=== PATIENT | female | born 1965 | race Caucasian/White ===

== ENCOUNTER 2017-04-12 12:00 | Emergency (ER) | payer MEDICAID ==
[~2017-04-12] VITALS: Ht 167.6 cm; Wt 79.1 kg
[~2017-04-12 12:00] MED LIST: DIVA250T4 PO
[2017-04-12 12:19] VITALS: BP 133/89
== END 2017-04-12 13:30 | disposition home or self-care (01) ==
LOC: ED 13:24
DX: J20.9 Acute bronchitis, unspecified (principal); Z90.49 Acquired absence of other specified parts of digestive tract; Z90.710 Acquired absence of both cervix and uterus
CPT/HCPCS: 71046; 99284

== ENCOUNTER 2017-04-14 12:31 | Inpatient (IN) | payer MEDICAID ==
[~2017-04-14] VITALS: Ht 167.6 cm; Wt 76.9 kg
[2017-04-14] MEDS ORDERED: PRED10TA PO (12:53)
[2017-04-14] MEDS ORDERED: ALBU6.7H INH (12:53)
[2017-04-14] MEDS ORDERED: CEFD300C37 PO (12:53)
[2017-04-14] MEDS ORDERED: ASPIRIN 81 MG TABLET CHEW PO ONE (13:00)
[2017-04-14] MEDS ORDERED: SODIUM CHLORIDE FLUSH 10ML SYR IVF ONE (13:00)
[2017-04-14] MEDS ORDERED: ASPIRIN 81 MG TABLET CHEW ONE (13:05)
[2017-04-14 13:06] LABS: BASOPHILS % (AUTO) 0 % (0-1); EOSINOPHILS # (AUTO) 0.01 x10^3/uL (0-0.4); EOSINOPHILS % (AUTO) 0 % (1-7); LYMPHOCYTES # (AUTO) 1.57 x10^3/uL (1-3.4); LYMPHOCYTES % (AUTO) 11 % (22-44); MD NO; MEAN CORPUSCULAR HGB CONC 33.7 g/dL (32.4-35.8); MEAN CORPUSCULAR VOLUME 86.1 fL (80-100); MEAN PLATELET VOLUME 7.5 fL (7.4-10.4); MONOCYTES # (AUTO) 0.63 x10^3/uL (0.2-0.8); MONOCYTES % (AUTO) 4 % (2-9); NEUTROPHILS # (AUTO) 12.39 x10^3/uL (1.8-6.8); NEUTROPHILS % (AUTO) 85 % (42-75); PLATELET COUNT 383 x10^3/uL (130-400); RED BLOOD COUNT 4.62 x10^6/uL (3.82-5.3); RED CELL DISTRIBUTION WIDTH 13.4 % (9.6-15.2)
[2017-04-14 13:19] LABS: ALBUMIN 3.6 g/dL (3.4-5.0); ANION GAP 9 mmol/L (5-15); CALCIUM 8.4 mg/dL (8.5-10.1); CHLORIDE 107 mmol/L (98-107)
[2017-04-14 13:26] LABS: CREATININE 0.79 mg/dL (0.55-1.02); TROPONIN I < 0.015 ng/mL (0.000-0.045)
[2017-04-14 15:59] VITALS: BP 135/82
[2017-04-14] MEDS ORDERED: morphine SULFATE 10 MG/ML, 1ML IVPush PRN (16:00)
[2017-04-14] MEDS ORDERED: ENOXAPARIN 40 MG/0.4 ML SQ SCH (16:00)
[2017-04-14] MEDS ORDERED: TEMPLATE NON-FORMULARY MED. (Albuterol Sulfate (Proventil Hfa) 2 PUFFS) INH PRN (16:00)
[2017-04-14] MEDS ORDERED: NITROGLYCERIN 0.4 MG/SPRAY SL PRN (16:00)
[2017-04-14] MEDS ORDERED: ONDANSETRON ODT 4 MG PO PRN (16:00)
[2017-04-14] MEDS ORDERED: NITROGLYCERIN 0.4 MG BOTTLE (25 TABS) SL PRN (16:00)
[2017-04-14] MEDS ORDERED: ONDANSETRON 2MG/ML, 2ML IVPush PRN (16:00)
[2017-04-14] MEDS ORDERED: MAALOX/HYOSCYAMINE/LIDOCAINE 45 ML BTL PO ONE (16:30)
[2017-04-14 19:16] LABS: TROPONIN I < 0.015 ng/mL (0.000-0.045)
[2017-04-14 19:26] VITALS: BP 98/64
[2017-04-14] MEDS ORDERED: ACETAMINOPHEN 325 MG TABLET PO PRN (20:00)
[2017-04-14] MEDS ORDERED: DIPHENHYDRAMINE 25 MG CAPSULE PO PRN (20:00)
[2017-04-14] MEDS: FAMOTIDINE 20 MG TABLET PO SCH (20:13)
[2017-04-14] MEDS: CEFDINIR 300 MG CAPSULE PO SCH (20:13)
[2017-04-15 01:08] LABS: TROPONIN I < 0.015 ng/mL (0.000-0.045)
[2017-04-15 02:00] VITALS: BP 114/74
[2017-04-15] MEDS ORDERED: ASPIRIN 81 MG TABLET EC PO SCH (06:00)
[2017-04-15 06:04] LABS: CHOL/HDL RATIO 4.4; LDL/HDL RATIO 2.1 (0.5-3.0)
[2017-04-15 07:10] VITALS: BP 146/75
[2017-04-15 07:22] LABS: BASOPHILS # (AUTO) 0.02 x10^3/uL (0-0.1); BASOPHILS % (AUTO) 0 % (0-1); EOSINOPHILS # (AUTO) 0.04 x10^3/uL (0-0.4); EOSINOPHILS % (AUTO) 0 % (1-7); LYMPHOCYTES # (AUTO) 3.51 x10^3/uL (1-3.4); LYMPHOCYTES % (AUTO) 30 % (22-44); MD NO; MEAN CORPUSCULAR HEMOGLOBIN 28.9 pg (27.0-34.8); MEAN CORPUSCULAR VOLUME 87.6 fL (80-100); MEAN PLATELET VOLUME 7.7 fL (7.4-10.4); MONOCYTES # (AUTO) 0.44 x10^3/uL (0.2-0.8); MONOCYTES % (AUTO) 4 % (2-9); NEUTROPHILS # (AUTO) 7.85 x10^3/uL (1.8-6.8); NEUTROPHILS % (AUTO) 66 % (42-75); PLATELET COUNT 367 x10^3/uL (130-400); RED BLOOD COUNT 4.62 x10^6/uL (3.82-5.3); RED CELL DISTRIBUTION WIDTH 13.4 % (9.6-15.2)
[2017-04-15] MEDS: FAMOTIDINE 20 MG TABLET PO SCH (08:26)
[2017-04-15] MEDS: CEFDINIR 300 MG CAPSULE PO SCH (08:26)
[2017-04-15] MEDS ORDERED: REGADENOSON 0.4 MG/5 ML SYRINGE ONE (10:26)
[2017-04-15 12:14] VITALS: BP 122/75
[2017-04-15] MEDS ORDERED: HYDR25TA11 PO (13:20)
[2017-04-15] MEDS ORDERED: ATOR20TA9 PO (13:20)
[2017-04-15] MEDS ORDERED: FAMO-79 PO (13:25)
[2017-04-15 14:30] LABS: HEMOGLOBIN A1C 6.5 % (4.2-6.3)
[2017-04-15] MEDS ORDERED: ATORVASTATIN 20 MG TABLET PO SCH (21:00)
== END 2017-04-15 15:14 | disposition home or self-care (01) | DRG 313 ==
LOC: ED 14:08 → EDIP 14:41 → 5SO 15:34 → DCLOUNGE 04-15 15:07
PROVIDERS: ADMIT Hospitalist; ATTEND Hospitalist
DX: R07.89 Other chest pain (principal); E74.39 Other disorders of intestinal carbohydrate absorption; E78.5 Hyperlipidemia, unspecified; F17.210 Nicotine dependence, cigarettes, uncomplicated; F41.1 Generalized anxiety disorder; G40.909 Epilepsy, unspecified, not intractable, without status epilepticus; R73.9 Hyperglycemia, unspecified; J06.9 Acute upper respiratory infection, unspecified; J40 Bronchitis, not specified as acute or chronic; K21.9 Gastro-esophageal reflux disease without esophagitis; T38.0X5A Adverse effect of glucocorticoids and synthetic analogues, initial encounter; Z82.49 Family history of ischemic heart disease and other diseases of the circulatory system; Z86.718 Personal history of other venous thrombosis and embolism; Z90.710 Acquired absence of both cervix and uterus; Z90.49 Acquired absence of other specified parts of digestive tract; Z90.711 Acquired absence of uterus with remaining cervical stump; Z71.6 Tobacco abuse counseling
CPT/HCPCS: 36415; 71045; 78452; 80048; 80061; 82040; 83036; 84484; 85025; 85379; 93005; 93017; 99285; J1650; J2785; Q0162; A9502; C9898; J7512; Q0163; Q0177

== ENCOUNTER 2019-11-25 15:20 | Emergency (ER) | payer MEDICAID ==
[~2019-11-25] VITALS: Ht 165.1 cm; Wt 82.3 kg
[~2019-11-25 15:20] MED LIST changes: +ALBU6.7H8 INH; +ATOR20TA37 PO; +CEFD300C37 PO; +FAMO-79 PO; +HYDR-826 PO; +PRED10TA PO
[2019-11-25 15:22] VITALS: BP 128/66
--- NOTE | 2019-11-25 16:02 | NUR ---
CALL MADE TO [facility] IN [place], [place] WHERE PT REPORTEDLY HAS NOT FILLED RX SINCE 2018. KEPPRA AND LAMOTRIGINE USED IN PAST, BUT LAMOTRIGINE ONLY FOR 4 WEEKS. CALL MADE TO [facility] IN [place], [place] WHERE PT HAS PHARMACY LISTED IN MED REC, AND PER MOLDER LABELS NO PT EXISTS IN THEIR SYSTEM.
[2019-11-25] MEDS ORDERED: ACETAMINOPHEN 325 MG TABLET ONE (16:12)
[2019-11-25] MEDS ORDERED: LORazepam 1MG TABLET ONE (16:12)
[2019-11-25] MEDS ORDERED: ACETAMINOPHEN 325 MG TABLET PO ONE (16:30)
[2019-11-25] MEDS ORDERED: LORazepam 1MG TABLET PO ONE (16:30)
--- NOTE | 2019-11-25 16:39 | NUR ---
CALL TO [facility]. MESSAGE LEFT.
--- NOTE | 2019-11-25 16:43 | NUR ---
SECOND CALL TO [facility], PER ADMISSIONS SPECIALIST THE TRANSPORTATION SERVICES HAVE CLOSED FOR THE EVENING. ALTERNATE PLAN FOR TRANSPORTATION DISUSSED WITH PLUG MAKING OPERATOR AND THROUGHPUT.
--- NOTE | 2019-11-25 16:54 | NUR ---
CALL FROM [facility], PT REPORTEDLY IN [facility] CARE BUT [facility]'S BUILDING FOR COVID. ARMENTA FROM [facility] TO CALL BACK WITH TRANSPORT. Addendum: 11/25/19 at 1657 by DUSTIN NOT ZEFERINO ARMENTA.
--- NOTE | 2019-11-25 16:57 | NUR ---
PER ZEFERINO FROM [facility], PT TO BE PICKED UP BY [facility], CONTACT IS RICHARD WHO WILL BE FACILITATING TRANSPORT.
--- NOTE | 2019-11-25 18:44 | NUR ---
[facility] TO WARNING COORDINATION METEOROLOGIST AT 1999. PT GIVEN PO NUTRITION. NAD NOTED AT THIS TIME. PT WATCHING TELEVISION. AWAITING RIDE.
--- NOTE | 2019-11-25 18:57 | NUR ---
REPORT TO JOSE MCGUIRE. PT REMAINS ON SPO2 MONITOR. NAD NOTED AT THIS TIME.
--- NOTE | 2019-11-25 19:00 | NUR ---
RECEIVED REPORT, ASSUMED CARE OF 54 YEAR OLD FEMALE TO ED FOR SEIZURES. PATIENT IS STABLE AND AWAITING TRANSPORT TO THE [facility] (COVID +) VIA [facility]. ETA 1999. WILL CONTIONUE TO MONITOR.
--- NOTE | 2019-11-25 20:42 | NUR ---
[facility] @ BEDSIDE TO TRANSFER PATIENT TO [facility]. REPORT GIVEN TO EMS PERSONNEL.
== END 2019-11-25 21:09 | disposition home or self-care (01) ==
LOC: ED 16:45
DX: R56.9 Unspecified convulsions (principal); R51 Headache; R94.31 Abnormal electrocardiogram [ECG] [EKG]; Z90.710 Acquired absence of both cervix and uterus; Z90.49 Acquired absence of other specified parts of digestive tract
CPT/HCPCS: 93005; 99283